=== PATIENT | female | born 1970 | race African-American/Black ===

== ENCOUNTER 2017-12-07 06:50 | Emergency (ER) | payer OTHER, MEDICAID ==
[2017-12-07 07:01] VITALS: BP 186/116
[2017-12-07] MEDS ORDERED: IBUPROFEN 800 MG TABLET PO ONE (07:18)
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
== END 2017-12-07 07:25 | disposition home or self-care (01) ==
LOC: ER 06:50
DX: M54.5 Low back pain (principal); M54.89 Other dorsalgia; V43.52XA Car driver injured in collision with other type car in traffic accident, initial encounter; F17.210 Nicotine dependence, cigarettes, uncomplicated; I10 Essential (primary) hypertension
CPT/HCPCS: 99283

== ENCOUNTER 2018-07-12 17:20 | Emergency (ER) | payer MEDICAID, OTHER ==
--- NOTE | 2018-07-12 18:39 | ER Document Report ---
ED Medical Screen (RME) - General Chief Complaint: Foot Pain Stated Complaint: FOOT PAIN Time Seen by Provider: 07/12/18 18:33 Mode of Arrival: Ambulatory Information source: Patient Notes: 47-year-old female with hypertension presents with complaint of left foot pain that started 1 day prior to arrival. She denies any injury. She denies prior similar symptoms. Patient also states that she has been off her blood pressure medication for a few weeks. She does not know the name of her blood pressure medication but states she has a primary care appointment on July 14. I have greeted and performed a rapid initial assessment of this patient. A comprehensive ED assessment and evaluation of the patient, analysis of test results and completion of medical decision making process we will be contacted by additional ED providers. PHYSICAL EXAMINATION: Vital signs reviewed-hypertensive GENERAL: Well-appearing, well-nourished and in no acute distress. LUNGS: No respiratory distress Musculoskeletal: Left pressure steamer tender to palpation, mild swelling and erythema. NEUROLOGICAL: Normal speech. Alert and oriented PSYCH: Normal mood, normal affect. SKIN: Warm, Dry, normal turgor, no rashes or lesions noted. TRAVEL OUTSIDE OF THE [place] IN LAST 30 DAYS: No - HPI Onset: Yesterday Onset/Duration: Gradual, Persistent, Worse Quality of pain: Achy, Throbbing Severity: Moderate Associated Symptoms: None Exacerbated by: Movement, Walking Relieved by: Denies Similar symptoms previously: No Recently seen / treated by doctor: No - Related Data Smoking: Cigarettes Frequency of alcohol use: None Drug Abuse: None Allergies/Adverse Reactions: No Known Allergies Allergy (Verified 07/12/18 17:23) Past Medical History - Social History Chew tobacco use (# tins/day): No Frequency of alcohol use: None Drug Abuse: None - Past Medical History Cardiac Medical History: Reports: Hx Hypertension Renal/ Medical History: Denies: Hx Peritoneal Dialysis Past Surgical History: Reports: Hx Tubal Ligation - Immunizations Hx Diphtheria, Pertussis, Tetanus Vaccination: No Physical Exam - Vital signs Vitals: Temp Pulse Resp BP Pulse Ox 98.4 F 96 18 207/122 H 100 07/12/18 17:43 07/12/18 17:43 07/12/18 17:43 07/12/18 17:43 07/12/18 17:43 Course - Vital Signs Vital signs: Temp Pulse Resp BP Pulse Ox 98.4 F 96 18 207/122 H 100 07/12/18 17:43 07/12/18 17:43 07/12/18 17:43 07/12/18 17:43 07/12/18 17:43 Doctor's Discharge - Discharge Referrals: BE BAER MD [Primary Care Provider] - Follow up as needed
--- NOTE | 2018-07-12 19:06 | RADIOLOGY REPORT (SQ) ---
EXAM DESCRIPTION: FOOT LEFT COMPLETE COMPLETED DATE/TIME: 07/12/2018 6:47 pm REASON FOR STUDY: Left foot pain 1 week, no known injury, lateral foot pain COMPARISON: None. NUMBER OF VIEWS: Three views. TECHNIQUE: AP, lateral and oblique radiographic images acquired of the left foot. LIMITATIONS: None. FINDINGS: MINERALIZATION: Normal. BONES: No acute fracture or dislocation. No worrisome bone lesions. JOINTS: No effusions. SOFT TISSUES: No soft tissue swelling. There is an old sewing needle in the soft tissues immediately ventral to the calcaneal attachment of the Achilles. OTHER: No other significant finding. IMPRESSION: No plain film findings to explain history of left lateral foot pain. Old sewing needle fragment in the soft tissues immediately ventral to the distal attachment Achilles tendon TECHNICAL DOCUMENTATION: JOB ID: [id number] [employer]- All Rights Reserved Reading location - IP/workstation name: [email or web address]
[2018-07-12] MEDS ORDERED: LIDOCAINE 1% INJ-PF (10 MG/ML) 30 ML SDV INFIL ONE (20:03)
[2018-07-12] MEDS ORDERED: CEFTRIAXONE INJ 1000 MG VIAL IM ONE (20:03)
[2018-07-12] MEDS ORDERED: ACETAMINOPHEN 325 MG TABLET PO ONE (20:04)
[2018-07-12] MEDS ORDERED: KETOROLAC TROMETHAMINE 60 MG/2 ML SDV IM ONE (20:04)
--- NOTE | 2018-07-12 20:08 | ER Document Report ---
ED General - General Chief Complaint: Foot Pain Stated Complaint: FOOT PAIN Time Seen by Provider: 07/12/18 18:33 Mode of Arrival: Ambulatory Notes: Patient is a 47-year old female with a past medical history of essential hypertension, has not taken her medications today, who presents with 48 hours of progressively worsening pain to the dorsum of her left foot with associated erythema to the area. She describes the pain as a severe, throbbing, aching pain to the area. She states the pain is so severe she cannot walk as it dramatically worsens the pain. She has not tried nothing to improve the pain other than applying ice which has been ineffectual. She denies a history of similar symptoms in the past. She has not seen her general doctor regarding today's concerns. She denies associated fever or constitutional symptoms. No injury to the area. TRAVEL OUTSIDE OF THE [place] IN LAST 30 DAYS: No - Related Data Allergies/Adverse Reactions: No Known Allergies Allergy (Verified 07/12/18 17:23) Past Medical History - General Information source: Patient - Social History Smoking Status: Current Every Day Smoker Chew tobacco use (# tins/day): No Frequency of alcohol use: None Drug Abuse: None Lives with: Spouse/Significant other Family History: Hypertension. denies: CAD, CVA Patient has suicidal ideation: No Patient has homicidal ideation: No - Past Medical History Cardiac Medical History: Reports: Hx Hypertension Renal/ Medical History: Denies: Hx Peritoneal Dialysis Past Surgical History: Reports: Hx Tubal Ligation - Immunizations Hx Diphtheria, Pertussis, Tetanus Vaccination: No Review of Systems - Review of Systems Notes: Constitutional: Negative for fever. HENT: Negative for sore throat. Eyes: Negative for visual changes. Cardiovascular: Negative for chest pain. Respiratory: Negative for shortness of breath. Gastrointestinal: Negative for abdominal pain, vomiting or diarrhea. Genitourinary: Negative for dysuria. Musculoskeletal: Positive for left foot pain Skin: Positive for rash. Neurological: Negative for headaches, weakness or numbness. 10 point ROS negative except as marked above and in HPI. Physical Exam - Vital signs Vitals: Temp Pulse Resp BP Pulse Ox 98.4 F 96 18 207/122 H 100 07/12/18 17:43 07/12/18 17:43 07/12/18 17:43 07/12/18 17:43 07/12/18 17:43 Interpretation: Hypertensive Notes: PHYSICAL EXAMINATION: GENERAL: Well-appearing, well-nourished and in no acute distress. HEAD: Atraumatic, normocephalic. EYES: Pupils equal round and reactive to light, extraocular movements intact, sclera anicteric, conjunctiva are normal. ENT: nares patent, oropharynx clear without exudates. Moist mucous membranes. NECK: Normal range of motion, supple without lymphadenopathy LUNGS: Breath sounds clear to auscultation bilaterally and equal. No wheezes rales or rhonchi. HEART: Regular rate and rhythm without murmurs, 2+ DP pulses bilaterally, capillary refill less than 1 second in all digits of the left foot ABDOMEN: Soft, nontender, normoactive bowel sounds. No guarding, no rebound. No masses appreciated. EXTREMITIES: Normal range of motion, no pitting or edema. No cyanosis. NEUROLOGICAL: No focal neurological deficits. Moves all extremities spontaneously and on command. PSYCH: Normal mood, normal affect. SKIN: Warm, Dry, normal turgor, there is a 2 x 2 centimeter area of erythema overlying the proximal dorsum of the left foot just below the level of the ankle without any evidence of a ankle joint effusion. No limited range of motion of the left ankle. Exquisite pain and heat to palpation of the area. There is slight streaking over the tibial surface approximately 4 cm from the level of the rash. Course - Re-evaluation Re-evalutation: 07/12/18 20:07 Patient presents with symptoms most consistent with an acute cellulitis of the left foot dorsum. Vitals within normal limits. Patient does not meet sepsis criteria is overall very well in appearance. Exam and history are not consistent with DVT. Inflammation is not located over the ankle or any alternative joint space to suggest a septic joint or gouty arthropathy. Foot is warm, well-perfused, strong DP pulse capillary refill less than 1 second in all digits of the left foot and I do not suspect an acute arterial compromise. Patient has been started on cephalexin and has been given a dose of 1 g of ceftriaxone here in the emergency department I am. At this time will discharge with return precautions and follow-up recommendations. Verbal discharge instructions given a the bedside and opportunity for questions given. Medication warnings reviewed. Patient is in agreement with this plan and has verbalized understanding of return precautions and the need for primary care follow-up in the next 24- 48 hours. - Vital Signs Vital signs: Temp Pulse Resp BP Pulse Ox 98.4 F 96 18 207/122 H 100 07/12/18 17:43 07/12/18 17:43 07/12/18 17:43 07/12/18 17:43 07/12/18 17:43 - Diagnostic Test Radiology reviewed: Image reviewed, Reports reviewed Radiology results interpreted by me: 07/12/18 20:08 Left foot x-ray: No acute fracture or bony abnormality Discharge - Discharge Clinical Impression: Cellulitis of left foot, Left foot pain, Essential hypertension Condition: Good Disposition: HOME, SELF-CARE Additional Instructions: The rash is likely due to infection of your skin. You need to take the antibiotics as prescribed. Do not stop even if the rash goes away until you have completed all the antibiotics. The area of redness was traced out here in the emergency department with a marking pen. You need to return to emergency department if the redness spreads outside of this area by more than 2 cm in any direction. You should also return if you develop fevers with temperature greater than 101, persistent vomiting, worsening pain, or have any other symptoms that are concerning to you. For your pain: Take ibuprofen 600 mg and acetaminophen 1000 mg every 6 hours together as needed for pain. Ice and elevate the area. Please follow-up with your general doctor within the next 24- 48 hours. Prescriptions: Cephalexin Monohydrate [Keflex 500 mg Capsule] 500 mg PO Q6H 7 Days capsule Forms: Return to Work Referrals: BE BAER MD [Primary Care Provider] - Follow up tomorrow
[2018-07-12 20:30] VITALS: BP 202/123
== END 2018-07-12 20:36 | disposition home or self-care (01) ==
LOC: ER 17:20
DX: L03.116 Cellulitis of left lower limb (principal); M79.672 Pain in left foot; I10 Essential (primary) hypertension; R21 Rash and other nonspecific skin eruption; F17.200 Nicotine dependence, unspecified, uncomplicated
CPT/HCPCS: 99283; 73630; J3490 ×2; J1885; J0696

== ENCOUNTER 2018-07-29 08:57 | Emergency (ER) | payer MEDICAID ==
[2018-07-29] MEDS ORDERED: ACETAMINOPHEN 325 MG TABLET PO ONE (09:31)
--- NOTE | 2018-07-29 09:33 | ER Document Report ---
ED Flu Like - General Chief Complaint: Flu Symptoms Stated Complaint: MUSCLE PAIN, RIGHT EAR CLOGGED Time Seen by Provider: 07/29/18 09:19 TRAVEL OUTSIDE OF THE [place] IN LAST 30 DAYS: No - Related Data Allergies/Adverse Reactions: No Known Allergies Allergy (Verified 07/29/18 08:59) Past Medical History - Social History Family History: Hypertension. denies: CAD, CVA - Past Medical History Cardiac Medical History: Reports: Hx Hypertension Renal/ Medical History: Denies: Hx Peritoneal Dialysis Past Surgical History: Reports: Hx Tubal Ligation - Immunizations Hx Diphtheria, Pertussis, Tetanus Vaccination: No Physical Exam - Vital signs Vitals: Pulse Resp BP Pulse Ox 80 18 103/68 99 07/29/18 09:06 07/29/18 09:06 07/29/18 09:06 07/29/18 09:06 - General General appearance: Appears well, Alert In distress: None - HEENT Head: Normocephalic, Atraumatic Eyes: Normal Conjunctiva: Normal Ears: Normal External canal: Normal Tympanic membrane: Normal Mouth/Lips: Normal Mucous membranes: Normal Neck: Normal, Supple. No: Lymphadenopathy - Respiratory Respiratory status: No respiratory distress Chest status: Nontender Breath sounds: Normal. No: Rales, Rhonchi, Stridor, Wheezing Chest palpation: Normal - Cardiovascular Rhythm: Regular Heart sounds: S1 appreciated, S2 appreciated Murmur: No - Abdominal Inspection: Normal Distension: No distension Bowel sounds: Normal Tenderness: Nontender - Back Back: CVA tenderness - bilat - Extremities General upper extremity: Normal inspection, Normal ROM General lower extremity: Normal inspection, Normal ROM - Neurological Neuro grossly intact: Yes Cognition: Normal Orientation: AAOx4 Eben Coma Scale Eye Opening: Spontaneous Eben Coma Scale Verbal: Oriented Eben Coma Scale Motor: Obeys Commands Eben Coma Scale Total: 15 - Psychological Associated symptoms: Normal affect, Normal mood - Skin Skin Temperature: Warm Skin Moisture: Dry Skin Color: Normal Course - Vital Signs Vital signs: Temp Pulse Resp BP Pulse Ox 80 18 103/68 99 07/29/18 09:06 07/29/18 09:06 07/29/18 09:06 07/29/18 09:06 Discharge - Discharge Referrals: BE BAER MD [Primary Care Provider] - Follow up as needed
[2018-07-29 10:13] LABS: ABSOLUTE EOSINOPHILS # (AUTO) 0.2 10^3/uL (0.0-0.6); ABSOLUTE LYMPHOCYTES (AUTO) 1.1 10^3/uL (0.5-4.7); ABSOLUTE MONOCYTES (AUTO) 0.4 10^3/uL (0.1-1.4); BASOPHILS % (AUTO) 1.2 % (0-2); EOSINOPHILS % (AUTO) 5.9 % (0-6); HEMATOCRIT 42.1 % (36.0-47.0); HEMOGLOBIN 13.9 g/dL (12.0-15.5); LYMPHOCYTES % (AUTO) 29.2 % (13-45); MEAN CORPUSCULAR HEMOGLOBIN 29.6 pg (27.0-33.4); MEAN CORPUSCULAR VOLUME 90 fl (80-97); MONOCYTES % (AUTO) 9.9 % (3-13); PLATELET COUNT 415 10^3/uL (150-450); RED BLOOD COUNT 4.69 10^6/uL (3.72-5.28); RED CELL DISTRIBUTION WIDTH 16.9 % (11.5-14.0); SEGMENTED NEUTROPHILS % (AUTO) 53.8 % (42-78); TOTAL CELLS COUNTED % (AUTO) 100 %; WHITE BLOOD COUNT 3.8 10^3/uL (4.0-10.5)
[2018-07-29 10:25] LABS: ALANINE AMINOTRANSFERASE 50 U/L (9-52); ALKALINE PHOSPHATASE 93 U/L (38-126); ASPARTATE AMINO TRANSFERASE 31 U/L (14-36); BILIRUBIN,DIRECT 0.3 mg/dL (0.0-0.4); BILIRUBIN,TOTAL 0.3 mg/dL (0.2-1.3); BLOOD UREA NITROGEN 112 mg/dL (7-20); CALCIUM 10.6 mg/dL (8.4-10.2); CREATINE KINASE 115 U/L (30-135); GLUCOSE 106 mg/dL (75-110); TOTAL PROTEIN 8.9 g/dL (6.3-8.2)
[2018-07-29 10:30] LABS: CHLORIDE 107 mmol/L (98-107); SODIUM 136.8 mmol/L (137-145)
[2018-07-29 10:37] LABS: POTASSIUM 6.3 mmol/L (3.6-5.0)
[2018-07-29 10:38] LABS: ANION GAP 22 (5-19); CARBON DIOXIDE 8 mmol/L (22-30)
--- NOTE | 2018-07-29 10:42 | RADIOLOGY REPORT (SQ) ---
EXAM DESCRIPTION: CHEST 2 VIEWS COMPLETED DATE/TIME: 07/29/2018 10:11 am REASON FOR STUDY: sob COMPARISON: 07/15/2013 EXAM PARAMETERS: NUMBER OF VIEWS: two views TECHNIQUE: Digital Frontal and Lateral radiographic views of the chest acquired. RADIATION DOSE: NA LIMITATIONS: none FINDINGS: LUNGS AND PLEURA: No opacities, masses or pneumothorax. No pleural effusion. MEDIASTINUM AND HILAR STRUCTURES: No masses or contour abnormalities. HEART AND VASCULAR STRUCTURES: Heart normal size. No evidence for failure. BONES: No acute findings. HARDWARE: None in the chest. OTHER: No other significant finding. IMPRESSION: NO ACUTE RADIOGRAPHIC FINDING IN THE CHEST. TECHNICAL DOCUMENTATION: JOB ID: [id number] [employer]- All Rights Reserved Reading location - IP/workstation name: [email or web address]
[2018-07-29] MEDS ORDERED: NORMAL SALINE 1000 ML 500 ML IV ONE (10:43)
--- NOTE | 2018-07-29 10:44 | ER Document Report ---
ED General <PEPITOPBRADHA - Last Filed: 07/29/18 10:49> - General Mode of Arrival: Ambulatory Information source: Patient TRAVEL OUTSIDE OF THE [place] IN LAST 30 DAYS: No <MARIELLA GERONIMO - Last Filed: 07/29/18 14:32> - General Chief Complaint: Flu Symptoms Stated Complaint: MUSCLE PAIN, RIGHT EAR CLOGGED Time Seen by Provider: 07/29/18 09:19 Notes: 47-year-old female complaining of malaise, fatigue, decreased appetite, myalgias this week. She was seen on July 12 for a left foot cellulitis and was treated with cephalexin qid for 7 days through the emergency department. She went to see her primary care doctor [facility] and they started her on 07/16 for 10 days The infection is cleared up but then she started feeling bad with not being able to hear out of her right ear, fatigue, some chills, shortness of breath, some low back pain, Decreased appetite and myalgias. Recently she has had a 13 pound weight loss. No surgeries. (MARIELLA GERONIMO) - Related Data Allergies/Adverse Reactions: No Known Allergies Allergy (Verified 07/29/18 08:59) Past Medical History - General Information source: Patient - Social History Smoking Status: Current Every Day Smoker Chew tobacco use (# tins/day): No Frequency of alcohol use: None Drug Abuse: None Lives with: Family Family History: Hypertension Patient has suicidal ideation: No Patient has homicidal ideation: No - Past Medical History Cardiac Medical History: Reports: Hx Hypertension Renal/ Medical History: Denies: Hx Peritoneal Dialysis Past Surgical History: Reports: Hx Tubal Ligation - Immunizations Hx Diphtheria, Pertussis, Tetanus Vaccination: No <MARIELLA GERONIMO - Last Filed: 07/29/18 14:32> Review of Systems - Review of Systems Constitutional: See HPI EENT: No symptoms reported Cardiovascular: No symptoms reported Respiratory: No symptoms reported Gastrointestinal: See HPI Genitourinary: No symptoms reported Female Genitourinary: No symptoms reported Musculoskeletal: No symptoms reported Skin: No symptoms reported Hematologic/Lymphatic: No symptoms reported Neurological/Psychological: No symptoms reported <MARIELLA GERONIMO - Last Filed: 07/29/18 14:32> Physical Exam - Vital signs Interpretation: Normal - General General appearance: Appears well, Alert - HEENT Head: Normocephalic, Atraumatic Eyes: Normal Conjunctiva: Normal Pupils: PERRL Tympanic membrane: Normal - Respiratory Respiratory status: No respiratory distress Chest status: Nontender Breath sounds: Normal Chest palpation: Normal - Cardiovascular Rhythm: Regular Heart sounds: Normal auscultation Murmur: No - Abdominal Inspection: Normal Distension: No distension Bowel sounds: Normal Tenderness: Nontender Organomegaly: No organomegaly - Back Back: Normal, Nontender - Extremities General upper extremity: Normal inspection, Nontender, Normal color, Normal ROM , Normal temperature General lower extremity: Normal inspection, Nontender, Normal color, Normal ROM , Normal temperature, Normal weight bearing. No: Husam's sign - Neurological Neuro grossly intact: Yes Cognition: Normal Orientation: AAOx4 Eben Coma Scale Eye Opening: Spontaneous Kemmerer Coma Scale Verbal: Oriented Eben Coma Scale Motor: Obeys Commands Kemmerer Coma Scale Total: 15 Speech: Normal Motor strength normal: LUE, RUE, LLE, RLE Sensory: Normal - Psychological Associated symptoms: Normal affect, Normal mood - Skin Skin Temperature: Warm Skin Moisture: Dry Skin Color: Normal <MARIELLA GERONIMO - Last Filed: 07/29/18 14:32> - Vital signs Vitals: Pulse Resp BP Pulse Ox 80 18 103/68 99 07/29/18 09:06 07/29/18 09:06 07/29/18 09:06 07/29/18 09:06 Course - Laboratory Result Diagrams: 07/29/18 09:50 07/29/18 09:50 <ROSIE BEYER - Last Filed: 07/29/18 10:49> - Laboratory Result Diagrams: 07/29/18 09:50 07/29/18 12:15 - EKG Interpretation by Me EKG shows normal: Sinus rhythm Rate: Normal <MARIELLA GERONIMO - Last Filed: 07/29/18 14:32> - Re-evaluation Re-evalutation: 07/29/18 10:49 Report and handoff given to Mariella Geronimo. Patient moved to minor procedure in the main ER for further evaluation. (ROSIE BEYER) 07/29/18 12:[address] ACOSTA at [facility] nephrology fellow who recommends getting a phosphorus and a magnesium which I have added to the lab work. He wants me to call him back when the second chemistry is resulted. The patient is now in ultrasound. 07/29/18 12:[address] Baxter at this time for potassium above 7 put stat reserved for EKG bolus set the nurse and pt been notified. 07/29/18 13:03 called back to [facility] to speak with MICU for admission and nephrology consult. 07/29/18 13:07 dr shin [facility] will admit the pt to MICU, 07/29/18 13:20 Patient is now stating she does not want to go to [facility] she wants to go to [facility] because of closer to her family. I called [facility] and there on a 24-hour hold there at capacity and so the patient does now agreed to go to [facility]. dr baxter prefers air transport 07/29/18 13:30 07/29/18 14:01 Patient is a room assignment C208 the helicopter will be here [place] [address] Baxter is signed the EMTALA form. 07/29/18 14:31 vitals stable, air transport is here for the pt. she is sitting up stable to go to [facility] (MARIELLA GERONIMO) - Vital Signs Vital signs: Temp Pulse Resp BP Pulse Ox 97.2 F 80 17 110/68 100 07/29/18 13:22 07/29/18 09:06 07/29/18 14:00 07/29/18 13:00 07/29/18 11:29 - Laboratory Laboratory results interpreted by me: 07/29/18 07/29/18 07/29/18 09:50 09:50 09:50 WBC 3.8 L RDW 16.9 H VBG pH VBG HCO3 Sodium 136.8 L Potassium 6.3 H* Chloride Carbon Dioxide 8 L* Anion Gap 22 H BUN 112 H Creatinine 9.85 H Est GFR ( Amer) 5 L Est GFR (Non-Af Amer) 4 L POC Glucose Calcium 10.6 H Phosphorus Magnesium Total Protein 8.9 H TSH 0.11 L Free T3 pg/mL Urine Protein Urine Blood 07/29/18 07/29/18 07/29/18 10:21 11:30 12:15 WBC RDW VBG pH 7.13 L* VBG HCO3 11.6 L Sodium 136.3 L Potassium 7.8 H* D Chloride 109 H Carbon Dioxide 9 L* Anion Gap BUN 111 H Creatinine 8.84 H Est GFR ( Amer) 6 L Est GFR (Non-Af Amer) 5 L POC Glucose Calcium Phosphorus Magnesium Total Protein TSH Free T3 pg/mL Urine Protein 30 H Urine Blood LARGE H 07/29/18 07/29/18 07/29/18 12:15 12:15 14:03 WBC RDW VBG pH VBG HCO3 Sodium Potassium Chloride Carbon Dioxide Anion Gap BUN Creatinine Est GFR ( Amer) Est GFR (Non-Af Amer) POC Glucose 187 H Calcium Phosphorus 10.7 H Magnesium 2.7 H Total Protein TSH Free T3 pg/mL 2.49 L Urine Protein Urine Blood - EKG Interpretation by Me Additional EKG results interpreted by me: 07/29/18 12:38 dr baxter has seen EKG. QT 412, QTC 425 (MARIELLA GERONIMO) Discharge <ROSIE BEYER - Last Filed: 07/29/18 10:49> <MARIELLA GERONIMO - Last Filed: 07/29/18 14:32> - Discharge Clinical Impression: Metabolic acidosis, Hyperkalemia Acute renal failure Qualifiers: Acute renal failure type: unspecified Qualified Code(s): N17.9 - Acute kidney failure, unspecified Condition: Serious Disposition: [facility] Referrals: BE BAER MD [Primary Care Provider] - Follow up as needed
[2018-07-29 10:54] LABS: APPEARANCE,URINE SLIGHTLY-CLOUDY; BILIRUBIN,URINE NEGATIVE (NEGATIVE); COLOR,URINE YELLOW; GLUCOSE, URINE NEGATIVE (NEGATIVE); KETONES,URINE NEGATIVE (NEGATIVE); LEUKOCYTE ESTERASE,URINE NEGATIVE (NEGATIVE); NITRITE,URINE NEGATIVE (NEGATIVE); PROTEIN,URINE 30 mg/dL (NEGATIVE); URINE SPECIFIC GRAVITY 1.014; UROBILINOGEN,URINE NEGATIVE mg/dL (<2.0)
[2018-07-29 11:48] LABS: URINE AMPHETAMINES SCREEN NEGATIVE; URINE BARBITURATES SCREEN NEGATIVE; URINE BENZODIAZEPINES SCREEN NEGATIVE; URINE COCAINE SCREEN NEGATIVE; URINE MARIJUANA (THC) SCREEN NEGATIVE; URINE METHADONE SCREEN NEGATIVE; URINE PHENCYCLIDINE SCREEN NEGATIVE
[2018-07-29 11:50] LABS: VENOUS BLOOD BASE EXCESS -16.7 mmol/L; VENOUS BLOOD HCO3 11.6 mmol/L (20-32)
[2018-07-29 11:52] LABS: VENOUS BLOOD PH 7.13 (7.30-7.42)
[2018-07-29 12:46] LABS: ANION GAP 18 (5-19); BLOOD UREA NITROGEN 111 mg/dL (7-20); CALCIUM 10.1 mg/dL (8.4-10.2); CHLORIDE 109 mmol/L (98-107); GLUCOSE 93 mg/dL (75-110); SODIUM 136.3 mmol/L (137-145)
[2018-07-29 12:53] LABS: POTASSIUM 7.8 mmol/L (3.6-5.0)
[2018-07-29] MEDS ORDERED: CALCIUM GLUCONATE 1000 MG/10 ML INJ IV ONE (12:53)
[2018-07-29] MEDS ORDERED: INSULIN REG, HUMAN 100 UNIT/ML 3 ML VIAL (PYX) IV ONE (12:54)
[2018-07-29] MEDS ORDERED: SODIUM BICARBONATE 8.4% INJ 50 MEQ/50 ML DISP.SYRIN IV ONE (12:54)
[2018-07-29] MEDS ORDERED: DEXTROSE 50%-WATER 25 GM/50 ML DISP.SYRIN IV ONE ×2 (12:54→13:27)
[2018-07-29] MEDS ORDERED: NORMAL SALINE 1000 ML 1,000 ML IV ONE (12:55)
[2018-07-29] MEDS ORDERED: SODIUM POLYSTYRENE SULFONATE 15 GM/60 ML PO ONE (12:55)
[2018-07-29 13:02] LABS: PHOSPHORUS 10.7 mg/dL (2.5-4.5)
--- NOTE | 2018-07-29 13:06 | RADIOLOGY REPORT (SQ) ---
EXAM DESCRIPTION: U/S RETROPERITON (RENAL/AORTA) COMPLETED DATE/TIME: 07/29/2018 12:55 pm REASON FOR STUDY: US the bladder too COMPARISON: None. TECHNIQUE: Dynamic and static grayscale images acquired of the kidneys and bladder and recorded on P ACS. Additional selected color Doppler and spectral images recorded. LIMITATIONS: None. FINDINGS: RIGHT KIDNEY: Normal size. Normal echogenicity. No solid or suspicious masses. No hydronep hrosis. No calcifications. LEFT KIDNEY: Normal size. Normal echogenicity. No solid or suspicious masses. No hydronephrosis. No calcifications. BLADDER: No masses. OTHER FINDINGS: No other significant finding. IMPRESSION: NORMAL RENAL AND BLADDER ULTRASOUND. TECHNICAL DOCUMENTATION: JOB ID: [id number] [employer]- All Rights Reserved Reading location - IP/workstation name: [email or web address]
[2018-07-29 13:12] LABS: CARBON DIOXIDE 9 mmol/L (22-30)
[2018-07-29] MEDS ORDERED: ALBUTEROL SULFATE 0.083% NEB 2.5 MG/3 ML AMPUL NEB ONE (13:24)
[2018-07-29 13:25] LABS: FREE T3 2.49 pg/mL (2.77-5.27); FREE T4 (FREE THYROXINE) 1.06 ng/dL (0.78-2.19)
[2018-07-29 14:22] VITALS: BP 110/68
--- NOTE | 2018-07-29 21:06 | EKG REPORT ---
SEVERITY:- NORMAL ECG - SINUS RHYTHM : Confirmed by: Wes Brian 29-Jul-2018 21:05:33
--- NOTE | 2018-07-29 21:06 | EKG REPORT ---
SEVERITY:- BORDERLINE ECG - SINUS RHYTHM BORDERLINE T WAVE ABNORMALITIES BORDERLINE ST ELEVATION, INFERIOR LEADS : Confirmed by: Wes Brian 29-Jul-2018 21:05:26
== END 2018-07-29 13:05 | disposition short-term general hospital (02) ==
LOC: ER 08:57
DX: N17.9 Acute kidney failure, unspecified (principal); E87.5 Hyperkalemia; E87.2 Acidosis; R53.83 Other fatigue; R53.81 Other malaise; R63.0 Anorexia; M79.10 Myalgia, unspecified site; R68.83 Chills (without fever); R06.02 Shortness of breath; M54.5 Low back pain; R63.4 Abnormal weight loss; I10 Essential (primary) hypertension; F17.200 Nicotine dependence, unspecified, uncomplicated
CPT/HCPCS: 93005; 94640; 99285; 96361; 96374; 96375; 36415; 87086; 84439; 82962; 82550; 83735; 84100; 84132; 84443; 84703; 85025; 80048; 80053; 81001; 84484; 80307; 84481; 82803; 71046; 76770; 93010; J3490 ×4; J0610; J1815; J7030